=== PATIENT | male | born 1980 | race African-American/Black ===

== ENCOUNTER 2018-08-09 09:48 | Emergency (ER) | payer SELFPAY ==
[2018-08-09 10:02] VITALS: BMI 26.6
--- NOTE | 2018-08-09 10:22 | PDOC ---
History of Present Illness - General Chief Complaint: Lightheaded Stated Complaint: DIZZY - History of Present Illness Initial Comments: The patient is a 38F w/ a history of a 'heart murmur' since childhood as well as symptomatic bradycardia who presents for evaluation of dizziness for 1d today. Describes associated narrowing vision and tinnitus with episodes of dizziness. Also reports associated left hand tingling with these episodes. 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 08/09/18 10:55 Past History - Past Medical History Allergies/Adverse Reactions: Allergies Allergy/AdvReac Type Severity Reaction Status Date / Time No Known Allergies Allergy Verified 08/09/18 09:55 Home Medications: Ambulatory Orders NK [No Known Home Medication] 08/09/18 Cardiac Disorders: Yes (bradrycardia.) COPD: No CHF: No DVT: No - Suicide/Smoking/Psychosocial Hx Smoking History: Never smoked Have you smoked in the past 12 months: No Information on smoking cessation initiated: No Hx Alcohol Use: No Drug/Substance Use Hx: No Review of Systems - Review of Systems Able to Perform ROS?: Yes Comments:: GENERAL/CONSTITUTIONAL: No fever or chills. No weakness HEAD, EYES, EARS, NOSE AND THROAT: No change in vision. No ear pain or discharge. No sore throat CARDIOVASCULAR: No chest pain or shortness of breath RESPIRATORY: Denies cough, hemoptysis GASTROINTESTINAL: No nausea, vomiting, diarrhea or constipation GENITOURINARY: No dysuria, frequency, or change in urination MUSCULOSKELETAL: No joint or muscle swelling or pain. No neck or back pain SKIN: No rash NEUROLOGIC: Denies current dizziness. No headache, vertigo, loss of consciousness, or change in strength/sensation ENDOCRINE: No increased thirst. No abnormal weight change HEMATOLOGIC/LYMPHATIC: No anemia, easy bleeding, or history of blood clots ALLERGIC/IMMUNOLOGIC: No hives or skin allergy 08/09/18 10:22 Is the patient limited Sammarinese proficient: No *Physical Exam - Vital Signs Last Vital Signs Temp Pulse Resp BP Pulse Ox 98.9 F 63 16 120/59 L 100 08/09/18 09:48 08/09/18 09:48 08/09/18 09:48 08/09/18 09:48 08/09/18 09:48 08/09/18 10:22 - Physical Exam Comments: GENERAL: Awake, alert, and fully oriented, in no acute distress HEAD: No signs of trauma, normocephalic, atraumatic EYES: PERRLA, EOMI, sclera anicteric, conjunctiva clear ENT: Hearing grossly normal, nares patent, oropharynx clear without exudates. Moist mucosa LUNGS: No distress, speaks full sentences, clear to auscultation bilaterally HEART: Bradycardic rate w/ regular rhythm, normal S1 and S2, no murmurs appreciated, peripheral pulses normal and equal bilaterally ABDOMEN: Soft, nontender, normoactive bowel sounds. No guarding, no rebound EXTREMITIES : Normal inspection, Normal range of motion, no edema. No clubbing or cyanosis NEUROLOGICAL: Cranial nerves II through XII grossly intact. Normal speech, no focal sensorimotor deficits SKIN: Warm, Dry, normal turgor, no rashes or lesions noted 08/09/18 10:22 Moderate Sedation - Procedure Monitoring Vital Signs: Procedure Monitoring Vital Signs Temperature 989 F H 08/09/18 09:48 Pulse Rate 63 08/09/18 09:48 Respiratory Rate 16 08/09/18 09:48 Blood Pressure 120/59 L 08/09/18 09:48 O2 Sat by Pulse Oximetry (%) 100 08/09/18 09:48 ED Treatment Course - LABORATORY CBC & Chemistry Diagram: 08/09/18 11:20 08/09/18 11:20 Medical Decision Making - Medical Decision Making The patient is a 38M w/ a history of a 'heart murmur' and symptomatic bradycardia who presents for evaluation of 1d of dizziness which the patient associated w/ his bradycardia. On exam the patient currently denies feeling dizzy or having any other symptoms ED Course ECG 08/09/18 10:59 Lytes wnl No leukocytosis No anemia ECG w/ sinus marleny, no evidence of ST changes suggestive of ischemia Plan for D/C w/ PCP and neurology f/u Return precautions and discharge instructions given Patient in agreement and verbalizes understanding Dispo: home 08/09/18 12:38 *DC/Admit/Observation/Transfer Diagnosis at time of Disposition: Lightheaded - Discharge Dispostion Disposition: HOME Condition at time of disposition: Stable Decision to Admit order: No - Referrals Referrals: [facility] [place] [Provider Group] Richard Crandall MD [Staff Physician] - Aki Guzman MD [Staff Physician] - - Patient Instructions Printed Discharge Instructions: DI for Dizziness-Nonvertigo Additional Instructions: You were seen for evaluation of dizziness. Please review the handouts provided with discharge. Follow up with the referrals given, especially neurology. Return to the Emergency Department if you develop fevers/chills, pass out, worsening dizziness, worsening symptoms, or new/concerning symptoms. - Post Discharge Activity Forms/Work/School Notes: Back to Work
--- NOTE | 2018-08-09 11:01 | PDOC ---
Attending Attestation - HPI HPI: The patient is a 38 year old male, with a significant past medical history of symptomatic bradycardia and murmur, who presents to the emergency department with, dizziness. As per patient, he was at work when his episode onset as dizziness and numbness/tingling to the fingers. He notes yesterday he had a similar episode which he went to the ER for and was discharged with a diagnosis of a cluster headache. Patient endorses approximately 1-2 similar episodes a month. 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 He denies any recent fevers, chills, or headache. He denies any recent nausea, vomit, diarrhea or constipation. He denies any recent chest pain or shortness of breath. He denies any recent dysuria, frequency, urgency or hematuria. Allergies: NKDA Past surgical history: None reported. Social History: Nonsmoker. Denies EtOH use and recreational drug use. 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 sypmtoms resolved and cpt is currently asypmtomatic. multiple prior episodes in the psat approx monthly, but never has this on exertion. denies associated cp, headache, back pain, neck pain, abd pain, focal weakness. suspect possible vasovagal episode will ck bsaic labs to r/o anemia, metabolic derangement will refer pt to neurology for vasovagal workup - Physicial Exam PE: GENERAL: The patient is awake, alert, and fully oriented, Nontoxic - in no acute distress. HEAD: Normocephalic, atraumatic. EYES: extraocular movements intact, sclera anicteric, conjunctiva clear. ENT: Normal voice, Moist mucous membranes. NECK: Normal range of motion, supple LUNGS: Breath sounds equal, clear to auscultation bilaterally. No wheezes, no rhonchi, no rales. HEART: Regular rate and rhythm, normal S1 and S2 without murmur, rub or gallop. ABDOMEN: Soft, nontender, normoactive bowel sounds. No guarding, no rebound. . No CVA tenderness EXTREMITIES: Normal range of motion, no edema. No clubbing or cyanosis. No cords, erythema, or tenderness. NEUROLOGICAL: No facial assymetry, Normal speech, PSYCH: Normal mood, normal affect. SKIN: Warm, Dry, normal turgor, - Medical Decision Making 08/10/18 16:29 se eaobv <Tucker Lobo - Last Filed: 08/10/18 16:29> Heart Score/ECG Review - ECG Impressions Comment:: 08/09/18 11:35 Twelve-lead EKG was performed and reviewed by me. There is normal sinus rhythm with a rate of [address] changes suggestive of acute ischemia Normal intervals Impression sinus bradycardia <Tucker Lobo - Last Filed: 08/10/18 16:29> Attestations - Attestations 08/09/18 12:13 Documentation prepared by Violeta Lott, acting as medical delivery driver for Tucker Lobo MD. <Violeta Lott - Last Filed: 08/09/18 12:13>
[2018-08-09 11:34] LABS: HEMATOCRIT 40.1 % (35.4-49); HEMOGLOBIN 13.2 GM/dL (11.7-16.9); MCH 24.2 pg (25.7-33.7); MCHC 32.9 g/dl (32.0-35.9); MEAN CELL VOLUME 73.6 fl (80-96); MEAN PLT VOLUME 6.9 fl (7.5-11.1); PLATELET COUNT 297 K/MM3 (134-434); RBC 5.45 M/mm3 (4.00-5.60); RDW 15.3 % (11.9-15.9); WHITE BLOOD COUNT 3.9 K/mm3 (4.0-10.0)
[2018-08-09 11:57] LABS: ALK PHOS 74 U/L (45-117); ANION GAP 7 MMOL/L (8-16); BLOOD UREA NITROGEN 10 mg/dL (7-18); CALCIUM 8.8 mg/dL (8.5-10.1); CHLORIDE 105 mmol/L (98-107); CO2 28 mmol/L (21-32); CREATININE 1.1 mg/dL (0.55-1.3); GLUCOSE,RANDOM 78 mg/dL (74-106); POTASSIUM 4.7 mmol/L (3.5-5.1); SGOT/AST 20 U/L (15-37); SGPT/ALT 24 U/L (13-61); SODIUM 141 mmol/L (136-145); TOT PROT 7.3 g/dl (6.4-8.2)
[2018-08-09 12:29] VITALS: BP 133/79; PULSE 60; TEMP 98.1
[2018-08-09] MEDS ORDERED: ACETAMINOPHEN 325 MG TABLET (FP) PO ONE (13:05)
--- NOTE | 2018-08-09 19:02 | EKG ---
Test Reason : Blood Pressure : / mmHG Vent. Rate : 052 BPM Atrial Rate : 052 BPM P-R Int : 172 ms QRS Dur : 104 ms QT Int : 404 ms P-R-T Axes : 053 052 046 degrees QTc Int : 375 ms SINUS BRADYCARDIA WITH SINUS ARRHYTHMIA OTHERWISE NORMAL ECG NO PREVIOUS ECGS AVAILABLE Confirmed by KEVEN BRICE MD ([id number]) on 08/09/2018 7:02:33 PM Referred By: Confirmed By:KEVEN BRICE MD
== END 2018-08-09 12:40 | disposition home or self-care (01) ==
LOC: JER 09:48
DX: R42 Dizziness and giddiness (principal); R00.1 Bradycardia, unspecified
CPT/HCPCS: 36415; 80053; 85027; 93005; 93010; 99282-25